=== PATIENT | male | born 1985 | race Caucasian/White ===

== ENCOUNTER 2023-08-15 09:41 | Emergency (ER) | payer OTHER ==
[2023-08-15 10:50] LABS: BASOPHILS ABSOLUTE AUTO 0.02 K/uL (0.00-0.20); BASOPHILS PERCENT AUTO 0.3 % (0.0-2.0); EOSINOPHILS ABSOLUTE AUTO 0.09 K/uL (0.00-0.50); EOSINOPHILS PERCENT AUTO 1.6 % (0.0-5.0); HEMATOCRIT 41.8 % (39.0-49.0); HEMOGLOBIN 14.8 g/dL (13.1-16.8); LYMPHOCYTES ABSOLUTE AUTO 1.42 K/uL (0.50-3.50); LYMPHOCYTES PERCENT AUTO 24.6 % (10.0-50.0); MEAN CORPUSCULAR HEMOGLOBIN 30.2 pg (28.2-33.3); MEAN CORPUSCULAR HGB CONC 35.4 g/dL (31.7-36.0); MEAN CORPUSCULAR VOLUME 85.3 fL (84.0-98.0); MONOCYTES ABSOLUTE AUTO 0.38 K/uL (0.00-1.00); MONOCYTES PERCENT AUTO 6.6 % (2.0-14.0); NEUTROPHILS ABSOLUTE AUTO 3.87 K/uL (1.40-7.00); NEUTROPHILS PERCENT AUTO 66.9 % (45.0-80.0); PLATELET COUNT,PLT 165 K/uL (150-350); RED CELL DISTRIBUTION WIDTH 12.4 % (11.2-14.1); WHITE BLOOD CELL COUNT,WBC 5.8 K/uL (4.0-10.2)
[2023-08-15 11:10] LABS: ALBUMIN 3.9 g/dL (3.4-5.0); ANION GAP 8.3 meq/L (7-15); BILIRUBIN TOTAL 0.9 mg/dL (0.2-1.0); CALCIUM 8.4 mg/dL (8.5-10.1); CARBON DIOXIDE,CO2 24.7 mmol/L (21.0-32.0); CREATININE 0.98 mg/dL (0.51-1.17); EST CRCL DRUG DOSING (CG) 115.5 mL/min; POTASSIUM,K 3.9 mmol/L (3.5-5.1); PROTEIN TOTAL,TP 6.8 g/dL (6.4-8.2)
[2023-08-15 11:12] LABS: PROTHROMBIN TIME 9.9 SEC (9.0-11.1)
[2023-08-15 11:14] LABS: LACTIC ACID 0.5 mmol/L (0.4-2.0)
[2023-08-15] MEDS: ceFAZolin 2 GM in Premix Bag 1 BAG IV SCH (11:21)
[2023-08-15] MEDS ORDERED: ceFAZolin 2 GM in Premix Bag 1 BAG IV SCH (16:00)
== END 2023-08-15 15:45 | disposition home or self-care (01) ==
LOC: LL.ED 09:41
DX: S61.451A Open bite of right hand, initial encounter (principal); L03.113 Cellulitis of right upper limb; F17.210 Nicotine dependence, cigarettes, uncomplicated; Y04.1XXA Assault by human bite, initial encounter
CPT/HCPCS: 36415; 73130-RT; 80053; 83605; 85025; 85610; 87040; 96365; 99283-25; J0690